=== PATIENT | male | born 1960 | race Caucasian/White ===

== ENCOUNTER 2023-02-09 09:59 | Outpatient (CLI) | payer OTHER, SELFPAY | END 2023-02-09 10:00 | disposition home or self-care (01) | PROVIDERS: PCP Family Medicine; Visit Provider Family Medicine | DX: Z00.00 Encounter for general adult medical examination without abnormal findings (principal); I10 Essential (primary) hypertension; Z13.6 Encounter for screening for cardiovascular disorders; Z12.5 Encounter for screening for malignant neoplasm of prostate | CPT/HCPCS: 80048; 80061; 84153 ==

== ENCOUNTER 2024-04-11 14:16 | Outpatient (CLI) | payer BC, SELFPAY | END 2024-04-11 14:17 | disposition home or self-care (01) | LOC: LKVREF 14:17 | PROVIDERS: PCP Family Medicine; Visit Provider Family Medicine | DX: I10 Essential (primary) hypertension (principal) | CPT/HCPCS: 80048 ==